=== PATIENT | female | born 1970 | race American Indian/Alaskan Native ===

== ENCOUNTER 2017-10-23 23:09 | Inpatient (IN) | payer OTHER ==
[2017-10-23] MEDS ORDERED: NACL 0.9% 1000 ML 1,000 ML IV ONE (23:24)
[2017-10-23] MEDS ORDERED: BABY ASPIRIN PO ONE (23:24)
--- NOTE | 2017-10-23 23:30 | Emergency Department Report ---
ED Palpitations HPI - General Stated Complaint: HEADACHE/CHEST PAIN Time Seen by Provider: 10/23/17 23:23 - History of Present Illness Initial Comments: Patient is 47 years old female history of hypertension and seizure. Patient brought into the ER by EMS after she starts having palpitations all of a sudden heart rate 169. EMS read the EKG as is SVT, she was given adenosine 6 and 12 was no change.by the time she gets to the ER her EKG showed paroxysmal non- sustained V. tach. Patient now rhythm is regular rhythm with a rate of 110. Patient is complaining of shortness of breaths. Patient denied any chest pain during this episode. She stated that she had a similar episode 2 days ago and it went away by itself. MD Complaint: rapid heart beat, "heart racing", palpitations -: Sudden Context: occured during rest Associated Symptoms: shortness of breath. denies: chest pain, syncope, near- syncope, nausea/vomiting Treatments Prior to Arrival: adenosine - Related Data Previous Rx's Medication Instructions Recorded Last Taken Type Metoprolol [Lopressor TAB] 25 mg PO BID #60 tablet 10/25/17 Unknown Rx levETIRAcetam [Keppra TAB] 500 mg PO BID #60 tablet 10/25/17 Unknown Rx Allergies Allergy/AdvReac Type Severity Reaction Status Date / Time FRANCO Inhibitors Allergy Unknown Verified 10/23/17 23:35 aspirin Allergy Unknown Verified 10/23/17 23:35 egg Allergy Unknown Verified 10/23/17 23:35 ibuprofen [From Motrin] Allergy Unknown Verified 10/23/17 23:35 NSAIDS (Non-Steroidal Allergy Unknown Verified 10/23/17 23:35 Anti-Inflamma Penicillins Allergy Unknown Verified 10/23/17 23:35 Pork/Porcine Containing Allergy Unknown Verified 10/23/17 23:35 Products ED Review of Systems ROS: Stated complaint: HEADACHE/CHEST PAIN Other details as noted in HPI Comment: All other systems reviewed and negative Constitutional: denies: chills Eyes: denies: eye pain ENT: denies: throat pain Respiratory: shortness of breath. denies: cough, orthopnea, SOB with exertion, SOB at rest, wheezing Cardiovascular: palpitations, dyspnea on exertion. denies: chest pain Gastrointestinal: denies: abdominal pain, nausea, vomiting, diarrhea, constipation, hematemesis, melena, hematochezia Musculoskeletal: denies: back pain Neurological: denies: headache, weakness, numbness, paresthesias ED Past Medical Hx - Past Medical History Hx Hypertension: Yes Hx Seizures: Yes - Medications Home Medications: Home Medications Medication Instructions Recorded Confirmed Last Taken Type Metoprolol [Lopressor TAB] 25 mg PO BID #60 tablet 10/25/17 Unknown Rx levETIRAcetam [Keppra TAB] 500 mg PO BID #60 tablet 10/25/17 Unknown Rx ED Physical Exam - General General appearance: alert, anxious - Head Head exam: Present: atraumatic, normocephalic, normal inspection - Eye Eye exam: Present: normal appearance, PERRL - ENT ENT exam: Present: normal exam, normal orophraynx, mucous membranes moist - Neck Neck exam: Present: normal inspection, full ROM. Absent: tenderness, meningismus, lymphadenopathy, thyromegaly - Respiratory Respiratory exam: Present: normal lung sounds bilaterally. Absent: respiratory distress, wheezes, rales, rhonchi, stridor, chest wall tenderness, accessory muscle use, decreased breath sounds, prolonged expiratory - Cardiovascular Cardiovascular Exam: Present: tachycardia - GI/Abdominal GI/Abdominal exam: Present: soft, normal bowel sounds. Absent: distended, tenderness, guarding, rebound, rigid, organomegaly, mass, bruit, pulsatile mass , hernia - Extremities Exam Extremities exam: Present: normal inspection, full ROM, normal capillary refill - Back Exam Back exam: Present: normal inspection, full ROM. Absent: tenderness, CVA tenderness (R), CVA tenderness (L), muscle spasm, paraspinal tenderness, vertebral tenderness, rash noted - Neurological Exam Neurological exam: Present: alert, oriented X3, CN II-XII intact, normal gait - Skin Skin exam: Present: warm, intact, normal color ED Course Vital Signs 10/23/17 10/23/17 10/23/17 23:08 23:15 23:30 Temperature Pulse Rate 148 H 118 H 113 H Respiratory 14 13 14 Rate Blood Pressure 134/87 132/83 O2 Sat by Pulse 100 100 100 Oximetry 10/23/17 10/23/17 10/24/17 23:35 23:45 00:00 Temperature 98.8 F Pulse Rate 111 H 127 H Respiratory 20 21 Rate Blood Pressure 122/76 127/77 O2 Sat by Pulse 100 100 Oximetry 10/24/17 10/24/17 10/24/17 00:12 00:15 00:30 Temperature Pulse Rate 111 H 110 H 114 H Respiratory 14 11 L 16 Rate Blood Pressure 122/76 122/84 126/60 O2 Sat by Pulse 100 100 100 Oximetry 10/24/17 10/24/17 10/24/17 01:00 01:38 02:00 Temperature Pulse Rate 114 H Respiratory 13 Rate Blood Pressure 122/82 122/82 122/82 O2 Sat by Pulse 100 100 100 Oximetry 10/24/17 10/24/17 10/24/17 02:30 03:00 03:10 Temperature Pulse Rate Respiratory Rate Blood Pressure 122/82 122/82 122/82 O2 Sat by Pulse 100 100 100 Oximetry 10/24/17 10/24/17 10/24/17 03:20 03:30 03:40 Temperature Pulse Rate Respiratory Rate Blood Pressure 122/82 122/82 122/82 O2 Sat by Pulse 100 100 100 Oximetry 10/24/17 10/24/17 10/24/17 03:50 04:00 04:10 Temperature Pulse Rate Respiratory Rate Blood Pressure 122/82 122/82 122/82 O2 Sat by Pulse 100 100 100 Oximetry 10/24/17 04:20 Temperature Pulse Rate Respiratory Rate Blood Pressure 122/82 O2 Sat by Pulse 100 Oximetry - Reevaluation(s) Reevaluation #1: 10/24/17 02:30 I discussed the patient is Dr. Li, he advised to start patient on metoprolol 12.5 mg twice a day and he will see the patient in the morning. ED Medical Decision Making - Lab Data Result diagrams: 10/23/17 23:34 10/25/17 05:41 - EKG Data -: EKG Interpreted by Me Rate: tachycardia - Radiology Data Radiology results: report reviewed Referring Physician: WALDO TAVARES Patient Name: HECTOR MENDIETA Date of : 1970 Sex: Female Report Date: 2017-10-24 Report Status: Finalized Findings [facility] [address] [place] [address] Cat Scan Report Signed Patient: HECTOR MENDIETA MR#: [id number] : 1970 Acct:[id number] Age/Sex: 47 / F ADM Date: 10/23/17 Loc: ED Attending Dr: Ordering Physician: WALDO TAVARES Date of Service: 10/24/17 Procedure(s): CT angio chest Accession Number(s): [id number] cc: WALDO TAVARES FINAL REPORT EXAM: CT ANGIO CHEST HISTORY: CHEST PAIN WITH SYNCOPE TECHNIQUE: A CT angiogram was performed following the intravenous injection of 100 cc of Omnipaque 350. Rotational, sagittal, and coronal MIP reconstructions were reviewed. FINDINGS: The lungs are not congested. There is minimal bibasilar atelectatic changes. There is no evidence of pulmonary embolus or aortic dissection. The heart size is normal. The thoracic aorta reveals mild ectasia of the ascending aorta measuring 3.1 cm in diameter. There is no evidence of adenopathy. Pericardial fluid is not seen. At the thoracic inlet the thyroid gland appears normal. The skeletal structures reveal multilevel disc degeneration in the dorsal spine. In the upper abdomen the adrenal glands appear normal. IMPRESSION: No evidence of pulmonary embolus, aortic dissection, or vascular congestion. Minimal bibasilar atelectatic changes. No acute process in the chest. Transcribed By: RB Dictated By: DOMINIQUE BELTRAN MD Electronically Authenticated By: DOMINIQUE BELTRAN MD Signed Date/Time: 10/24/17141 DD/ 1 TD/TT: 10/24/17141 Critical Care Time: Yes Critical care time in (mins) excluding proc time.: 30 Critical care attestation.: If time is entered above; I have spent that time in minutes in the direct care of this critically ill patient, excluding procedure time. ED Disposition Clinical Impression: Non-sustained ventricular tachycardia Disposition: OP ADMIT IP TO THIS HOSP Is pt being admited?: Yes Condition: Stable
--- NOTE | 2017-10-23 23:44 | XRay Report ---
FINAL REPORT PROCEDURE: XR CHEST 1V AP TECHNIQUE: Chest radiograph anteroposterior view. CPT 95150 HISTORY: Chest Pain COMPARISON: No prior studies are available for comparison. FINDINGS: Heart: Normal. Mediastinum/Vessels: Normal. Lungs/Pleural space: Normal. Bony thorax: No acute osseous abnormality. Life support devices: None. IMPRESSION: No acute cardiopulmonary abnormality.
[2017-10-23 23:48] LABS: Basophils % (Auto) 1.4 % (0.0-1.8); Eosinophils % (Auto) 0.2 % (0.0-4.3); Hematocrit 39.6 % (30.3-42.9); Hemoglobin 12.7 gm/dl (10.1-14.3); Lymphocytes # (Auto) 0.9 K/mm3 (1.2-5.4); Lymphocytes % (Auto) 29.7 % (13.4-35.0); Mean Corpuscular HGB Conc 32 % (30-34); Mean Corpuscular Hemoglobin 28 pg (28-32); Mean Corpuscular Volume 87 fl (79-97); Monocytes # (Auto) 0.3 K/mm3 (0.0-0.8); Monocytes % (Auto) 9.3 % (0.0-7.3); Platelet Count 161 K/mm3 (140-440); Red Blood Count 4.58 M/mm3 (3.65-5.03); Red Cell Distribution Width 14.9 % (13.2-15.2)
[2017-10-24 00:01] LABS: INR 1.04 (0.87-1.13)
[2017-10-24 00:02] LABS: Partial Thromboplastin Time 27.5 Sec. (24.2-36.6)
[2017-10-24 00:05] LABS: Alanine Aminotransferase 11 units/L (7-56); Albumin 3.7 g/dL (3.9-5); BUN/Creatinine Ratio 12; Blood Urea Nitrogen 12 mg/dL (7-17); Calcium 9.1 mg/dL (8.4-10.2); Hemolysis Index 7
--- NOTE | 2017-10-24 01:48 | Cat Scan Report ---
FINAL REPORT EXAM: CT ANGIO CHEST HISTORY: CHEST PAIN WITH SYNCOPE TECHNIQUE: A CT angiogram was performed following the intravenous injection of 100 cc of Omnipaque 350. Rotational, sagittal, and coronal MIP reconstructions were reviewed. FINDINGS: The lungs are not congested. There is minimal bibasilar atelectatic changes. There is no evidence of pulmonary embolus or aortic dissection. The heart size is normal. The thoracic aorta reveals mild ectasia of the ascending aorta measuring 3.1 cm in diameter. There is no evidence of adenopathy. Pericardial fluid is not seen. At the thoracic inlet the thyroid gland appears normal. The skeletal structures reveal multilevel disc degeneration in the dorsal spine. In the upper abdomen the adrenal glands appear normal. IMPRESSION: No evidence of pulmonary embolus, aortic dissection, or vascular congestion. Minimal bibasilar atelectatic changes. No acute process in the chest.
[2017-10-24] MEDS ORDERED: TYLENOL PO PRN (03:45)
[2017-10-24] MEDS ORDERED: ZOFRAN IV PRN (03:47)
[2017-10-24] MEDS ORDERED: NITROSTAT SL PRN (03:48)
[2017-10-24] MEDS ORDERED: ATIVAN IV PRN (03:49)
[2017-10-24] MEDS: LOPRESSOR PO SCH ×3 (03:59→22:02)
--- NOTE | 2017-10-24 06:11 | History and Physical Report ---
CHIEF COMPLAINT: Shortness of breath. Other complaints include rapid heartbeat and seizure attack. HISTORY OF PRESENT ILLNESS: The patient is a 47-year-old female, who was noted by family members to having seizure attack at home. Also the patient was complaining of headache and palpitation and was later on picked up by Emergency Services and found to have heart rate running about 169. EMS read EKG as SVT and gave the patient adenosine 6 mg and then 12 mg later on without any change in the reading and by the time, the patient got to the Emergency Room, EKG shows runs of ventricular tachycardia and later on converted to regular sinus tachycardia. There was a history of shortness of breath and chest pain that started after the patient was in the Emergency Room. The patient states she had similar episode with rapid heart rate about 2 days ago that went away on its own. There was no history of fever, no history of chills. No history of cough, nausea or vomiting. PAST MEDICAL HISTORY: Pertinent for hypertension. Also the patient has a past history of seizure disorder. PAST SURGICAL HISTORY: Noncontributory. FAMILY HISTORY: Noncontributory. SOCIAL HISTORY: The patient lives with family. Does not smoke cigarette, does not drink alcohol and does not use illicit drugs. MEDICATIONS: The patient's home medications include Dilantin, dose and frequency unknown. ALLERGIES: THE PATIENT IS ALLERGIC TO FRANCO INHIBITORS, ASPIRIN and IBUPROFEN. REVIEW OF SYSTEMS: CONSTITUTIONAL: There is no fever, no chills. No diaphoresis. HEENT: He has no headache or sore throat. CARDIOVASCULAR SYSTEM: Chest pain present. No orthopnea. Had palpitation. RESPIRATORY SYSTEM: Shortness of breath present. No cough. GASTROINTESTINAL SYSTEM: There is no nausea, no vomiting, no abdominal pain, diarrhea, or constipation. NEUROLOGICAL SYSTEM: There is no numbness, no dizziness, no altered mental status, seizure attack or disorder present. MUSCULOSKELETAL SYSTEM: There is no joint pain or swelling. DERMATOLOGICAL SYSTEM: There is no skin rash or itching. GENITOURINARY SYSTEM: There is no dysuria, hematuria or flank pain. Rest of system review is normal. PHYSICAL EXAMINATION: GENERAL: At the time of exam, the patient was found to be alert, oriented x 3 and not in acute distress. VITAL SIGNS: Shows normal temperature with a pulse of 114, respiration 13, O2 sat of 100% on room air, and blood pressure of 122/82. HEENT: Shows pupils to be equal, round, and reactive to light and accommodating. Extraocular muscles are intact. NECK: Supple, with no JVD or carotid bruit. CARDIOVASCULAR SYSTEM: Showed normal first and second heart sounds with no gallops or murmurs and the rate is fast. RESPIRATORY SYSTEM: Showed good air entry on both sides of the lungs, with no abnormal breath sounds. GASTROINTESTINAL SYSTEM: Showed abdomen to be full, soft, and nontender with no organomegaly or rigidity. NEUROLOGICAL SYSTEM: Showed no focal deficit. MUSCULOSKELETAL SYSTEM: Showed no joint swelling or tenderness. DERMATOLOGICAL SYSTEM: Showed no skin rash. GENITOURINARY SYSTEM: Showed no costovertebral angle tenderness. PERTINENT LABORATORY AND IMAGING STUDIES: The patient has CBC done with low white count of 2.9, normal hemoglobin, normal hematocrit, and normal MCV. CBC differential is showing elevated monocyte count of 9.3%. The patient's coagulation studies showed elevated D-dimer of 239. The patient's chemistry was unremarkable. Magnesium level came back normal. The patient's troponin level came back normal. The patient had a CT angiogram of the chest done that shows no evidence of pulmonary embolism, aortic dissection or vascular congestion. There are minimal bibasilar atelectatic changes, with no acute process surrounding the chest. The patient also had chest x-ray done that shows no acute cardiopulmonary abnormality. DIAGNOSES: 1. Cardiac arrhythmia. 2. Seizure attack. 3. Chest pain. PLAN: The patient will be admitted to medical floor on telemetry. We will have cardiac enzymes involving troponin, total CK and CK-MB checked every 6 hours x 2 more levels. The patient will continue Cardiology consult with Dr. Trish Li ordered by the Emergency Room physician and will also have Neurology consult with Dr. Rodgers for seizure attack. The patient will be on p.r.n. medications like Tylenol 650 mg by mouth every 4 hours for fever and headache and will be on aspirin 325 mg by mouth daily. The patient will be on Keppra 500 mg by mouth twice daily and will be on IV Ativan 1 mg every 2 hours as needed for seizure attack and will be on IV Zofran 4 mg every 8 hours for nausea and vomiting. The patient will be on oxygen by nasal cannula at 2 liters per minute and will be on nitroglycerin sublingual 0.4 mg every 5 minutes as needed for chest pain. DVT prophylaxis will be through sequential compressive device. The patient's home medications will be reconciled and started when they are known. JOB# [id number] OCN/NTS MTDD
[2017-10-24 06:40] LABS: Creatine Kinase MB 1.4 ng/mL (0.0-4.0)
[2017-10-24 07:24] LABS: Chol/HDL Ratio 2.65 %
[2017-10-24] MEDS ORDERED: ASPIRIN PO SCH (10:00)
[2017-10-24] MEDS: KEPPRA PO SCH ×2 (10:05→22:02)
--- NOTE | 2017-10-24 12:59 | History and Physical Report ---
History of Present Illness Date of examination: 10/24/17 Date of admission: 10/24/17 03:36 Chief complaint: FOCUSED NEUROLOGY CONSULT CC: I am asked to see this 47 F with seizures and a cardiac rhythm disorder. ' HPI: From chart and patient. Patient is not a good historian. Apparently in 2014 she had a gastric sleeve installed and lost much weight, no wt loss recently. She has HTN. 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 she uses a walker at home to steady her gait. She lives with her daughter. She apparently had seizures since that time and has been followed on Dilantin [address] Velasco and more recently has been on ??"Etomidate"?? She has a "seizure" or spell every day or every other day. she may fall to the floor with these, or may not, most last for only a few ?seconds/minutes before orthodoxy of full mental functioning. She has never bitten her tongue or lost GI or control. She apparently does not jerk during these spells because her boyfriend has told her she "just goes limp". She sees Dr Velasco once a month. Most recently, within the past two days, she had a spell, summoned EMS, was found to be in SVT with a rapid HR ?, had chest pain and SOB, was given adenosine with orthodoxy of normal sinus mechanism. In the hospital here she is on Keppra 500 mg BID with no further spells. A cardiology consult is pending. ROS: an 11 point ROS is negative. NEURO EXAM: HEENT: nl, no trauma NECK: supple, no bruits MS: alert, cooperative, speech fluent and clear without error, follows commands accurately CN II - 12: nl. pupils both 4 mm diam and react to bright light stim, EOM full without nystag, hughes full to finger confront, no facial assym MOT: nl strength all four extrem pros and distally on resistance testin.] SENS: denies loss of touch sense throughout CEREB: fnf nl bilat DTRs: 1+ and symm prox and dist all four extrem, both great toes downgoing to plantar simt bilat GAIT: not tested due to fall risk DX IMP: 1. Hx multiple spells (qd or qod) which to my hx sound most likely secondary to cardiac rhythm disturbance rather than Sz. She may have Sz as well. Hx is just not clear. 2. Other med dxs as above. RECC: 1. continue Keppra 500 mg BID 2. contact office of Dr Velasco and learn what anti-Sz or anti-spell meds she is supposed to be on 3. I will order head CT and EEG 4. We await Cardiology consult 5. Go from there. Tameka Rodgers MD Medications and Allergies Allergies Allergy/AdvReac Type Severity Reaction Status Date / Time FRANCO Inhibitors Allergy Unknown Verified 10/23/17 23:35 aspirin Allergy Unknown Verified 10/23/17 23:35 egg Allergy Unknown Verified 10/23/17 23:35 ibuprofen [From Motrin] Allergy Unknown Verified 10/23/17 23:35 NSAIDS (Non-Steroidal Allergy Unknown Verified 10/23/17 23:35 Anti-Inflamma Penicillins Allergy Unknown Verified 10/23/17 23:35 Pork/Porcine Containing Allergy Unknown Verified 10/23/17 23:35 Products Home Medications Medication Instructions Recorded Confirmed Last Taken Type No Known Home Medications [No 10/24/17 10/24/17 Unknown History Reported Home Medications] Active Meds: Active Medications Acetaminophen (Tylenol) 650 mg PO Q4H PRN PRN Reason: For Pain/Fever/Headache Last Admin: 10/24/17 10:04 Dose: 650 mg Aspirin (Aspirin) 325 mg PO QDAY [facility] Last Admin: 10/24/17 10:06 Dose: Not Given Levetiracetam (Keppra) 500 mg PO BID [facility] Last Admin: 10/24/17 10:05 Dose: 500 mg Lorazepam (Ativan) 1 mg IV Q2H PRN PRN Reason: Seizures Metoprolol Tartrate (Lopressor) 12.5 mg PO BID [facility] Last Admin: 10/24/17 09:47 Dose: Not Given Morphine Sulfate (Morphine) 2 mg IV Q4H PRN PRN Reason: Pain, Moderate (4-6) Nitroglycerin (Nitrostat) 0.4 mg SL .Q5MIN PRN PRN Reason: Chest Pain Ondansetron HCl (Zofran) 4 mg IV Q8H PRN PRN Reason: Nausea And Vomiting Physical Examination - Vital Signs Vital Signs: Vital Signs Pulse Resp Pulse Ox 148 H 14 100 10/23/17 23:08 10/23/17 23:08 10/23/17 23:08 Results - Laboratory Findings CBC and BMP: 10/23/17 23:34 10/23/17 23:34 Abnormal Lab Findings: Abnormal Labs 10/23/17 10/23/17 10/23/17 23:34 23:34 23:34 WBC 2.9 L Towner % (Auto) 9.3 H Lymph # 0.9 L Seg Neutrophils # 1.7 L D-Dimer 239.58 H Glucose 111 H Troponin T Albumin 3.7 L Cholesterol LDL Cholesterol Direct HDL Cholesterol 10/24/17 05:45 WBC Towner % (Auto) Lymph # Seg Neutrophils # D-Dimer Glucose Troponin T 0.035 H D Albumin Cholesterol 226 H LDL Cholesterol Direct 151 H HDL Cholesterol 85 H
--- NOTE | 2017-10-24 13:09 | Consultation ---
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 She is previously unknown to our practice. She presented with complaints of palpitations and SOB. She states that she had a seizure at home yesterday evening and when she regained consciousness, she noted the onset of her symptoms. Per EMS report, pt was noted to be in SVT upon their arrival and thus she was given adenosine 6 and 12 was no change. Initial ECG in ED showed apparent right ventricular outflow tract ventricular tachycardia. Pt reportedly spontaneously converted to SR while in ED and she remained in NSR overnight per telemety review. On evaluation, pt denies any current complaints. Pt denies any prior history of cardiac arrhythmias. Past History Past Medical History: hypertension, seizures, stroke Medications and Allergies Allergies Allergy/AdvReac Type Severity Reaction Status Date / Time FRANCO Inhibitors Allergy Unknown Verified 10/23/17 23:35 aspirin Allergy Unknown Verified 10/23/17 23:35 egg Allergy Unknown Verified 10/23/17 23:35 ibuprofen [From Motrin] Allergy Unknown Verified 10/23/17 23:35 NSAIDS (Non-Steroidal Allergy Unknown Verified 10/23/17 23:35 Anti-Inflamma Penicillins Allergy Unknown Verified 10/23/17 23:35 Pork/Porcine Containing Allergy Unknown Verified 10/23/17 23:35 Products Home Medications Medication Instructions Recorded Confirmed Last Taken Type No Known Home Medications [No 10/24/17 10/24/17 Unknown History Reported Home Medications] Active Meds: Active Medications Acetaminophen (Tylenol) 650 mg PO Q4H PRN PRN Reason: For Pain/Fever/Headache Last Admin: 10/24/17 10:04 Dose: 650 mg Aspirin (Aspirin) 325 mg PO QDAY [facility] Last Admin: 10/24/17 10:06 Dose: Not Given Levetiracetam (Keppra) 500 mg PO BID [facility] Last Admin: 10/24/17 10:05 Dose: 500 mg Lorazepam (Ativan) 1 mg IV Q2H PRN PRN Reason: Seizures Metoprolol Tartrate (Lopressor) 12.5 mg PO BID [facility] Last Admin: 10/24/17 09:47 Dose: Not Given Morphine Sulfate (Morphine) 2 mg IV Q4H PRN PRN Reason: Pain, Moderate (4-6) Nitroglycerin (Nitrostat) 0.4 mg SL .Q5MIN PRN PRN Reason: Chest Pain Ondansetron HCl (Zofran) 4 mg IV Q8H PRN PRN Reason: Nausea And Vomiting Review of Systems Constitutional: no weight loss, no weight gain, no fever, no chills, no sweats Ears, nose, mouth and throat: no ear pain, no nose pain, no sinus pressure, no sinus pain Cardiovascular: palpitations, rapid/irregular heart beat, shortness of breath, high blood pressure, no chest pain, no orthopnea, no edema, no leg edema Respiratory: shortness of breath, no cough, no congestion, no wheezing, no pain on inspiration Gastrointestinal: no abdominal pain, no nausea, no vomiting, no diarrhea, no constipation, no change in bowel habits Genitourinary Female: no dyspareunia, no pelvic pain, no flank pain, no dysuria , no urinary frequency, no urgency Musculoskeletal: no neck stiffness, no neck pain, no shooting arm pain, no arm numbness/tingling, no low back pain, no shooting leg pain, no leg numbness/ tingling, no redness of joints Integumentary: no rash, no pruritis, no redness, no sores, no wounds Neurological: seizures, other (left sided residual weakness from CVA ), no head injury Psychiatric: no anxiety Endocrine: no cold intolerance, no heat intolerance Hematologic/Lymphatic: no easy bruising, no easy bleeding, no lymphadenopathy Allergic/Immunologic: no urticaria, no wheezing, no persistent infections Physical Examination Vital Signs Pulse Resp Pulse Ox 148 H 14 100 10/23/17 23:08 10/23/17 23:08 10/23/17 23:08 General appearance: no acute distress HEENT: Positive: PERRL, Normocephaly, Mucus Membranes Moist Neck: Positive: neck supple, trachea midline Cardiac: Positive: Reg Rate and Rhythm, S1/S2 Lungs: Positive: clear to auscultation Neuro: Positive: Grossly Intact, Cranial Nerve 2-12 Intact Abdomen: Positive: Soft. Negative: Tender Skin: Positive: Clear. Negative: Rash, Wound Musculoskeletal: No Fluid Collection, No Pain, Normal Range of Motion Extremities: Absent: edema Results 10/23/17 23:34 10/23/17 23:34 Cardiac Enzymes 10/23/17 10/24/17 Range/Units 23:34 05:45 AST 17 (5-40) units/L CK-MB (CK-2) 1.4 (0.0-4.0) ng/mL Coagulation 10/23/17 Range/Units 23:34 PT 14.1 (12.2-14.9) Sec. INR 1.04 (0.87-1.13) APTT 27.5 (24.2-36.6) Sec. Lipids 10/24/17 Range/Units 05:45 Triglycerides 34 (2-149) mg/dL Cholesterol 226 H (50-199) mg/dL HDL Cholesterol 85 H (40-59) mg/dL Cholesterol/HDL Ratio 2.65 % CBC 10/23/17 Range/Units 23:34 WBC 2.9 L (4.5-11.0) K/mm3 RBC 4.58 (3.65-5.03) M/mm3 Hgb 12.7 (10.1-14.3) gm/dl Hct 39.6 (30.3-42.9) % Plt Count 161 (140-440) K/mm3 Lymph # 0.9 L (1.2-5.4) K/mm3 [place] # 0.3 (0.0-0.8) K/mm3 Eos # 0.0 (0.0-0.4) K/mm3 Baso # 0.0 (0.0-0.1) K/mm3 Comprehensive Metabolic Panel 10/23/17 Range/Units 23:34 Sodium 144 (137-145) mmol/L Potassium 3.7 (3.6-5.0) mmol/L Chloride 103.3 (98-107) mmol/L Carbon Dioxide 24 (22-30) mmol/L BUN 12 (7-17) mg/dL Creatinine 1.0 (0.7-1.2) mg/dL Glucose 111 H (65-100) mg/dL Calcium 9.1 (8.4-10.2) mg/dL AST 17 (5-40) units/L ALT 11 (7-56) units/L Alkaline Phosphatase 102 (35-129) units/L Total Protein 6.4 (6.3-8.2) g/dL Albumin 3.7 L (3.9-5) g/dL - Imaging and Cardiology Echo: pending EKG: report reviewed, image reviewed EKG interpretations - Telemetry EKG Rhythm: Sinus Rhythm - EKG Sinus rhythms and dysrhythmias: sinus rhythm Assessment and Plan Assessment: 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 Obtain thyroid profile. Cont to trend Cathryn. Increase lopressor to 25mg PO BID. Plan for cardiac CTA tomorrow ~7:00AM. NPO after MN. Assessment and plan reviewed with pt at bedside. The patient has been seen in conjunction with Dr. Murray who agrees with the assessment and plan of care.
[2017-10-24 14:13] LABS: Creatine Kinase MB 1.2 ng/mL (0.0-4.0)
--- NOTE | 2017-10-24 15:02 | Cat Scan Report ---
CT HEAD WITHOUT CONTRAST: HISTORY: Seizure disorder, history of remote stroke. TECHNIQUE: Sequential 2.5mm CT images. COMPARISON: none. FINDINGS: Cerebral Parenchyma: Within normal limits. Cerebellum: Within normal limits. Brainstem: Within normal limits. Ventricles: Normal. Sella: Normal. Extra-axial spaces: Normal. Basal Cisterns: Normal. Intracranial Hemorrhage: None. Midline Shift: None. Calvarium: Normal. Sinuses: Normal. Mastoid Air Cells: Normal. Visualized Orbits: Normal. IMPRESSION: Cranial CT scan within normal limits.
[2017-10-24] MEDS: MORPHINE IV PRN (22:03)
[2017-10-25 06:43] LABS: BUN/Creatinine Ratio 10; Blood Urea Nitrogen 8 mg/dL (7-17); Calcium 8.5 mg/dL (8.4-10.2); Hemolysis Index 11
[2017-10-25 06:48] LABS: Creatine Kinase MB < 1.0 ng/mL (0.0-4.0)
[2017-10-25] MEDS: LOPRESSOR PO SCH (09:22)
[2017-10-25] MEDS: KEPPRA PO SCH (09:23)
--- NOTE | 2017-10-25 10:09 | Progress Note ---
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 CCTA reviewed - normal coronaries, EF 50%, zero calcium score. Cont lopressor 25mg PO BID. Currently stable cardiac status. Pt may discharge home from cardiology standpoint. Follow up in our [place] office with Dr. Murray on 10/30/2017 @ 2:00PM. Assessment and plan reviewed with pt at bedside. The patient has been seen in conjunction with Dr. Calix who agrees with the assessment and plan of care. Subjective Date of service: 10/25/17 Principal diagnosis: RVOT VT Interval history: pt resting comfortably in bed, no current cardiac complaints. Remained in SR overnight. Awaiting CCTA today. Objective Last Vital Signs Temp 97.8 F 10/25/17 09:33 Pulse 70 10/25/17 09:33 Resp 20 10/25/17 09:33 BP 116/74 10/25/17 09:33 Pulse Ox 99 10/25/17 09:33 - Physical Examination General: No Apparent Distress HEENT: Positive: PERRL, Normocephaly, Mucus Membranes Moist Neck: Positive: neck supple, trachea midline Cardiac: Positive: Reg Rate and Rhythm, S1/S2 Lungs: Positive: clear to auscultation Neuro: Positive: Grossly Intact, Cranial Nerve 2-12 Intact Abdomen: Positive: Soft. Negative: Tender Skin: Positive: Clear. Negative: Rash, Wound Musculoskeletal: No Fluid Collection, No Pain, Normal Range of Motion Extremities: Absent: edema - Labs and Meds Cardiac Enzymes 10/24/17 10/25/17 Range/Units 13:33 05:41 CK-MB (CK-2) 1.2 < 1.0 (0.0-4.0) ng/mL Comprehensive Metabolic Panel 10/25/17 Range/Units 05:41 Sodium 144 (137-145) mmol/L Potassium 3.6 (3.6-5.0) mmol/L Chloride 107.4 H (98-107) mmol/L Carbon Dioxide 23 (22-30) mmol/L BUN 8 (7-17) mg/dL Creatinine 0.8 (0.7-1.2) mg/dL Glucose 77 (65-100) mg/dL Calcium 8.5 (8.4-10.2) mg/dL - Imaging and Cardiology EKG: report reviewed, image reviewed Echo: pending - Telemetry EKG Rhythm: Sinus Rhythm - EKG Sinus rhythms and dysrhythmias: sinus rhythm
[2017-10-25] MEDS ORDERED: LOPRESSOR IV ONE (11:23)
[2017-10-25] MEDS ORDERED: NITROSTAT SL ONE ×2 (11:23→11:38)
[2017-10-25] MEDS ORDERED: LOPRESSOR IV NR (11:59)
--- NOTE | 2017-10-25 14:23 | Progress Note ---
Subjective Date of service: 10/25/17 Principal diagnosis: RVOT VT Interval history: NEUROLOGY PROGRESS NOTE: EEG TODAY: shows 10 - 12 Hz background. during drowsiness voltages attenuate and frequencies slow. State II sleep is attended by sleep spindles. IMP: Normal awake and asleep EEG. There is specifically no focal, lateralizing , or epileptiform abnormality. Head CT: Normal, with no evidence of prior "stroke". Further Hx: From Daughter: Patiens home meds include for PAIN ? of neck?(patient is s/p cervical disc removal and has hardware installed:Embeda ER 30 1.2 mg q 12 hrs; Gabapentin 600mg 4 id; Lidocain 5% Pad Pump, Oxycodone/acetaminophen one 4id prn pain. for SEIZURES: Eslicarbamazipine ("Aption") 800 mg QD, Javier confirmed patients use of a walker at home. From instrument setterCorinne ( who talked with patient): she is s/p bilateral mastectomy for breast CA, has had surgery for uterine CA, a divorce is in the wind. IMP: 1. Hx of a Seizure disorder, with frequent "spells" which are not Sz by hx, but more likely due to cardiac rhythm disturbance which patient has 2. Hx of "stroke" with no evidence of such on head CT and with no neuro findings of such on exam 3. Hx of needing to use walker x > 2 years for ?reason. ? cord misadventure attendant upon her remote c-spine surgery vs need for secondary gain in her psychosocial setting. RECC: 1. Neuro work up complete. 2. Keep her on Keppra 500 mg BID for now + her home Sx med 3. Follow up with Dr Velasco. 4. Call as needed. Tameka Rodgers MD Objective - Vital Sign Vital Signs - 12hr 10/25/17 10/25/17 10/25/17 03:41 04:58 07:46 Temperature 98.1 F Temperature [ Pre-Procedure] Pulse Rate 86 67 66 Pulse Rate [ Intra-Procedure ] Pulse Rate [ Post-Procedure] Pulse Rate [Pre -Procedure] Respiratory 20 Rate Respiratory Rate [Intra- Procedure] Respiratory Rate [Post- Procedure] Respiratory Rate [Pre- Procedure] Blood Pressure 96/53 105/60 Blood Pressure [Intra- Procedure] Blood Pressure [Post-Procedure ] Blood Pressure [Pre-Procedure] O2 Sat by Pulse 98 100 Oximetry O2 Sat by Pulse Oximetry [ Intra-Procedure ] O2 Sat by Pulse Oximetry [Post -Procedure] O2 Sat by Pulse Oximetry [Pre- Procedure] 10/25/17 10/25/17 10/25/17 09:22 09:33 11:45 Temperature Temperature [ 97.8 F Pre-Procedure] Pulse Rate 72 Pulse Rate [ Intra-Procedure ] Pulse Rate [ Post-Procedure] Pulse Rate [Pre 70 62 -Procedure] Respiratory Rate Respiratory Rate [Intra- Procedure] Respiratory Rate [Post- Procedure] Respiratory 20 18 Rate [Pre- Procedure] Blood Pressure 116/74 Blood Pressure [Intra- Procedure] Blood Pressure [Post-Procedure ] Blood Pressure 116/74 122/69 [Pre-Procedure] O2 Sat by Pulse Oximetry O2 Sat by Pulse Oximetry [ Intra-Procedure ] O2 Sat by Pulse Oximetry [Post -Procedure] O2 Sat by Pulse 99 100 Oximetry [Pre- Procedure] 10/25/17 10/25/17 10/25/17 11:50 11:53 11:58 Temperature Temperature [ Pre-Procedure] Pulse Rate 63 62 Pulse Rate [ 63 74 Intra-Procedure ] Pulse Rate [ Post-Procedure] Pulse Rate [Pre 60 -Procedure] Respiratory Rate Respiratory 20 19 Rate [Intra- Procedure] Respiratory Rate [Post- Procedure] Respiratory 16 Rate [Pre- Procedure] Blood Pressure 111/64 97/55 Blood Pressure 111/64 102/56 [Intra- Procedure] Blood Pressure [Post-Procedure ] Blood Pressure 114/65 [Pre-Procedure] O2 Sat by Pulse Oximetry O2 Sat by Pulse 100 99 Oximetry [ Intra-Procedure ] O2 Sat by Pulse Oximetry [Post -Procedure] O2 Sat by Pulse 100 Oximetry [Pre- Procedure] 10/25/17 10/25/17 10/25/17 12:02 12:05 12:08 Temperature Temperature [ Pre-Procedure] Pulse Rate Pulse Rate [ 65 Intra-Procedure ] Pulse Rate [ 65 64 Post-Procedure] Pulse Rate [Pre -Procedure] Respiratory Rate Respiratory 15 Rate [Intra- Procedure] Respiratory 21 18 Rate [Post- Procedure] Respiratory Rate [Pre- Procedure] Blood Pressure Blood Pressure 97/55 [Intra- Procedure] Blood Pressure 104/65 102/55 [Post-Procedure ] Blood Pressure [Pre-Procedure] O2 Sat by Pulse Oximetry O2 Sat by Pulse 98 Oximetry [ Intra-Procedure ] O2 Sat by Pulse 100 100 Oximetry [Post -Procedure] O2 Sat by Pulse Oximetry [Pre- Procedure] - Laboratory Findings CBC and BMP: 10/23/17 23:34 10/25/17 05:41 Abnormal Lab Findings: Abnormal Labs 10/23/17 10/23/17 10/23/17 23:34 23:34 23:34 WBC 2.9 L [place] % (Auto) 9.3 H Lymph # 0.9 L Seg Neutrophils # 1.7 L D-Dimer 239.58 H Chloride Glucose 111 H Troponin T Albumin 3.7 L Cholesterol LDL Cholesterol Direct HDL Cholesterol 10/24/17 10/25/17 05:45 05:41 WBC [place] % (Auto) Lymph # Seg Neutrophils # D-Dimer Chloride 107.4 H Glucose Troponin T 0.035 H D Albumin Cholesterol 226 H LDL Cholesterol Direct 151 H HDL Cholesterol 85 H
[2017-10-25] MEDS: MORPHINE IV PRN (14:25)
--- NOTE | 2017-10-25 14:34 | Progress Note ---
Assessment and Plan Assessment and plan: 47-year-old woman who presents with headache and palpitations. Per family members she was shaking and were concerned that she was having a seizure Ventricular arrhythmia Cardiology input appreciated, CCTA today, fup echo, cont rate control meds Seizure disorder Case discussed with neurology, no evidence of active seizures, her presentation more cw arrythmia and not with seizure, continue Keppra twice a day Chest pain -We'll likely due to arrhythmia, for coronary CT today History Interval history: Review of systems Constitutional: No fevers, no malaise, no joint pains CVS: No chest pain, no orthopnea, no dyspnea on exertion, no pedal edema GI: No abdominal pain, no diarrhea, no vomiting, no constipation Respiratory: No shortness of breath, no wheezing, no coughing Hospitalist Physical - Physical exam Narrative exam: General.: Appears well, no distress, nontoxic HEENT: Moist mucous membranes, extraocular muscles intact, no lymphadenopathy Neck: supple Cardiac: S1-S2 heard Lungs: clear to auscultation bilaterally Abdomen: soft , nontender, nondistended, bowel sounds positive Extremities: no edema clubbing or cyanosis Skin: no rash or lesions Neurologic: no gross focal deficits Psych: appropriate behavior, appropriate mood, corporative, judgment intact - Constitutional Vitals: Temp Pulse Resp BP Pulse Ox 97.8 F 64 20 102/55 100 10/25/17 09:33 10/25/17 12:08 10/25/17 14:25 10/25/17 12:08 10/25/17 12:08 General appearance: Present: no acute distress Results - Labs CBC & Chem 7: 10/23/17 23:34 10/25/17 05:41 Labs: Laboratory Last Values WBC 2.9 K/mm3 (4.5-11.0) L 10/23/17 23:34 RBC 4.58 M/mm3 (3.65-5.03) 10/23/17 23:34 Hgb 12.7 gm/dl (10.1-14.3) 10/23/17 23:34 Hct 39.6 % (30.3-42.9) 10/23/17 23:34 MCV 87 fl (79-97) 10/23/17 23:34 MCH 28 pg (28-32) 10/23/17 23:34 MCHC 32 % (30-34) 10/23/17 23:34 RDW 14.9 % (13.2-15.2) 10/23/17 23:34 Plt Count 161 K/mm3 (140-440) 10/23/17 23:34 Lymph % (Auto) 29.7 % (13.4-35.0) 10/23/17 23:34 [place] % (Auto) 9.3 % (0.0-7.3) H 10/23/17 23:34 Eos % (Auto) 0.2 % (0.0-4.3) 10/23/17 23:34 Baso % (Auto) 1.4 % (0.0-1.8) 10/23/17 23:34 Lymph # 0.9 K/mm3 (1.2-5.4) L 10/23/17 23:34 [place] # 0.3 K/mm3 (0.0-0.8) 10/23/17 23:34 Eos # 0.0 K/mm3 (0.0-0.4) 10/23/17 23:34 Baso # 0.0 K/mm3 (0.0-0.1) 10/23/17 23:34 Seg Neutrophils % 59.4 % (40.0-70.0) 10/23/17 23:34 Seg Neutrophils # 1.7 K/mm3 (1.8-7.7) L 10/23/17 23:34 PT 14.1 Sec. (12.2-14.9) 10/23/17 23:34 INR 1.04 (0.87-1.13) 10/23/17 23:34 APTT 27.5 Sec. (24.2-36.6) 10/23/17 23:34 D-Dimer 239.58 ng/mlDDU (0-234) H 10/23/17 23:34 Sodium 144 mmol/L (137-145) 10/25/17 05:41 Potassium 3.6 mmol/L (3.6-5.0) 10/25/17 05:41 Chloride 107.4 mmol/L (98-107) H 10/25/17 05:41 Carbon Dioxide 23 mmol/L (22-30) 10/25/17 05:41 Anion Gap 17 mmol/L 10/25/17 05:41 BUN 8 mg/dL (7-17) 10/25/17 05:41 Creatinine 0.8 mg/dL (0.7-1.2) 10/25/17 05:41 Estimated GFR > 60 ml/min 10/25/17 05:41 BUN/Creatinine Ratio 10 % 10/25/17 05:41 Glucose 77 mg/dL (65-100) 10/25/17 05:41 Calcium 8.5 mg/dL (8.4-10.2) 10/25/17 05:41 Magnesium 1.80 mg/dL (1.7-2.3) 10/25/17 05:41 Total Bilirubin 0.30 mg/dL (0.1-1.2) 10/23/17 23:34 AST 17 units/L (5-40) 10/23/17 23:34 ALT 11 units/L (7-56) 10/23/17 23:34 Alkaline Phosphatase 102 units/L (35-129) 10/23/17 23:34 Total Creatine Kinase 67 units/L (30-135) 10/25/17 05:41 CK-MB (CK-2) < 1.0 ng/mL (0.0-4.0) 10/25/17 05:41 CK-MB (CK-2) Rel Index 1.4 (0-4) 10/25/17 05:41 Troponin T < 0.010 ng/mL (0.00-0.029) 10/25/17 05:41 Total Protein 6.4 g/dL (6.3-8.2) 10/23/17 23:34 Albumin 3.7 g/dL (3.9-5) L 10/23/17 23:34 Albumin/Globulin Ratio 1.4 % 10/23/17 23:34 Triglycerides 34 mg/dL (2-149) 10/24/17 05:45 Cholesterol 226 mg/dL (50-199) H 10/24/17 05:45 LDL Cholesterol Direct 151 mg/dL (50-130) H 10/24/17 05:45 HDL Cholesterol 85 mg/dL (40-59) H 10/24/17 05:45 Cholesterol/HDL Ratio 2.65 % 10/24/17 05:45 TSH 1.270 mlU/mL (0.270-4.200) 10/24/17 15:11 Free T4 1.08 ng/dL (0.76-1.46) 10/24/17 15:11
--- NOTE | 2017-10-25 14:50 | Discharge Summary ---
Providers - Providers Date of Admission: 10/24/17 03:36 Attending physician: JACINTO SIMS MD 10/24/17 02:24 Consult to Physician [CONS] Stat Comment: Consulting Provider: FACUNDO SCHMITT Physician Instructions: Reason For Exam: nonsustained ventricular tachycardia 10/24/17 06:43 Consult to Physician [CONS] Routine Comment: Consulting Provider: KAMILLE MARTINEZ Physician Instructions: Reason For Exam: SEIZURE ATTACK Primary care physician: MEETING COORDINATOR Hospitalization Condition: Stable Hospital course: 47-year-old woman who presents with headache and palpitations. Per family members she was shaking and were concerned that she was having a seizure. She was seen by neurology who confirmed that her symptoms are most likely due to arrhythmia. She was found to have ventricular tachycardia. She went on to have CCTA which was negative, therefore a low risk for ischemic disease. She was put on metoprolol for rate control and was found to be in sinus rhythm afterwards Diagnosis Ventricular arrhythmia Seizure disorder Chest pain due to VT Disposition: WA- TO HOME OR SELFCARE Time spent for discharge: 33 minutes Core Measure Documentation - Palliative Care Palliative Care/ Comfort Measures: Not Applicable - Core Measures Any of the following diagnoses?: none Exam - Constitutional Vitals: Temp Pulse Resp BP Pulse Ox 97.8 F 64 20 102/55 100 10/25/17 09:33 10/25/17 12:08 10/25/17 14:25 10/25/17 12:08 10/25/17 12:08 General appearance: Present: no acute distress, well-nourished - EENT Eyes: Present: PERRL ENT: hearing intact, clear oral mucosa - Neck Neck: Present: supple, normal ROM - Respiratory Respiratory effort: normal Respiratory: bilateral: CTA - Cardiovascular Heart Sounds: Present: S1 & S2. Absent: rub, click - Extremities Extremities: pulses symmetrical, No edema Peripheral Pulses: within normal limits - Abdominal General gastrointestinal: Present: soft, non-tender, non-distended, normal bowel sounds Female genitourinary: Present: normal - Integumentary Integumentary: Present: clear, warm, dry - Musculoskeletal Musculoskeletal: gait normal, strength equal bilaterally - Psychiatric Psychiatric: appropriate mood/affect, intact judgment & insight - Neurologic Neurologic: CNII-XII intact, moves all extremities Plan Follow up with: PRIMARY CAREMD [Primary Care Provider] - 3-5 Days Prescriptions: levETIRAcetam [Keppra TAB] 500 mg PO BID #60 tablet Metoprolol [Lopressor TAB] 25 mg PO BID #60 tablet
--- NOTE | 2017-10-25 14:51 | Cat Scan Report ---
CT ANGIO HEART STRUCTURE/MORPHOLOGY/FUNCTION: INDICATION: Ventricular tachycardia. COMPARISON: None similar. FINDINGS: A limited chest CT scan was carried out for evaluation of heart structure, morphology and function. This dictation is for the non-cardiac portion of the chest which was included. No definite hilar or mediastinal mass. Mild bilateral lower lobe atelectasis or scarring posteriorly. Mild nonspecific distal esophageal wall prominence/thickening, not excluded for gastroesophageal reflux and/or hiatal hernia, amongst others. Imaged upper abdomen partially images gastric bypass/sleeve surgery. No acute osseous abnormality. IMPRESSION: Few extracardiac CT findings, as above. Please correlate. Thank you for the opportunity to participate in this patient's care.
[2017-10-25 16:51] VITALS: BP 127/72
== END 2017-10-25 17:30 | disposition home or self-care (01) | DRG 101 ==
LOC: ED 23:09 → 4A 10-24 03:36
PROVIDERS: ADMIT Internal Medicine; ATTEND Internal Medicine
DX: G40.909 Epilepsy, unspecified, not intractable, without status epilepticus (principal); I47.2 Ventricular tachycardia; I10 Essential (primary) hypertension; Z91.012 Allergy to eggs; Z88.6 Allergy status to analgesic agent; Z88.0 Allergy status to penicillin; Z79.899 Other long term (current) drug therapy; Z86.73 Personal history of transient ischemic attack (TIA), and cerebral infarction without residual deficits
CPT/HCPCS: 36415; 70450; 71045; 71275; 75574; 80048; 80053; 80061; 82550; 82553; 83735; 84439; 84443; 84484; 85025; 85379; 85610; 85730; 93005; 93010; 93306; 95819; 96374; 99291; J2270; Q9967